=== PATIENT | male | born 1950 | race Two or more races ===

== ENCOUNTER 2020-09-16 13:06 | Inpatient (IN) | payer MEDICAID ==
[2020-09-16] VITALS (13 sets, daily range): BP systolic 116–133; BP diastolic 62–80
[~2020-09-16] VITALS: Ht 167.6 cm; Wt 67.9 kg
[2020-09-16] MEDS ORDERED: SODIUM CHLORIDE 0.9% 1,000 ML IV ONE (13:45)
[2020-09-16] MEDS ORDERED: SODIUM CHLORIDE 0.9% 100 ML ONE (14:09)
[2020-09-16] MEDS ORDERED: IOVERSOL 350 MG/ML 100 ML VIAL ONE (14:09)
[2020-09-16 14:13] LABS: BASOPHILS % (AUTO) 0.4 % (0.0-2.0); MEAN CORPUSCULAR VOLUME 95 fL (80-100); NEUTROPHILS % (AUTO) 60.4 % (40.0-70.0); RED BLOOD CELL COUNT(AUTO) 1.58 MIL/uL (4.50-5.90)
[2020-09-16 14:28] LABS: CREATININE 1.37 mg/dL (0.60-1.30); POTASSIUM 4.1 mmol/L (3.5-5.1)
[2020-09-16 14:30] LABS: EOSINOPHILS % (AUTO) 0.1 % (1.0-6.0); LYMPHOCYTES # (AUTO) 3.8 K/uL (1.0-4.8); LYMPHOCYTES % (AUTO) 30.7 % (22.0-44.0); MEAN CORPUSCULAR HEMOGLOBIN 31.8 pg (26.0-34.0); MEAN CORPUSCULAR HGB CONC 33.4 G/dL (31.0-37.0); MONOCYTES % (AUTO) 8.4 % (2.0-9.0); NEUTROPHILS # (AUTO) 7.5 K/uL (1.8-7.7); PLATELET COUNT (AUTO) 390 K/uL (150-450); RED CELL DISTRIBUTION WIDTH 12.6 % (11.5-14.5)
[2020-09-16 14:34] LABS: ALBUMIN 2.6 g/dL (3.4-5.0); BILIRUBIN,TOTAL 0.4 mg/dL (0.1-1.0); TOTAL PROTEIN, SERUM 6.5 g/dL (6.4-8.2)
[2020-09-16 14:41] LABS: CALCIUM, TOTAL 9.6 mg/dL (8.8-10.5); HEMATOCRIT 15.1 % (41-53)
[2020-09-16] MEDS ORDERED: PANTOPRAZOLE SODIUM 80 MG in SODIUM CHLORIDE 0.9% 100 ML IV SCH (18:00)
[2020-09-16] MEDS ORDERED: PANTOPRAZOLE SODIUM 40 MG/VIAL IVP ONE (18:00)
[2020-09-16] MEDS ORDERED: ONDANSETRON HCL 4 MG/2 ML VIAL IVP PRN (18:15)
[2020-09-16 18:19] LABS: COVID AG,FIA SOURCE NASAL SWAB
[2020-09-16] MEDS: SODIUM CHLORIDE 0.45% 1,000 ML IV SCH ×2 (18:49→23:59)
[2020-09-16] MEDS: PANTOPRAZOLE SODIUM 40 MG/VIAL IVP SCH (20:33)
[2020-09-16] MEDS ORDERED: NAPR220C62 PO (22:47)
[2020-09-17 00:03] VITALS: BP 143/77
[2020-09-17] MEDS ORDERED: PNEUMOCOCCAL VACCINE POLYVALENT 0.5 ML VIAL [PPSV23] IM ONE (03:45)
[2020-09-17] MEDS ORDERED: INFLUENZA VIRUS VACCINE QVS 2020-21 (6MO+)/PF 60 MCG/0.5 ML SYRINGE IM ONE (03:45)
[2020-09-17 04:20] VITALS: BP 131/78
[2020-09-17 07:11] LABS: BASOPHILS % (AUTO) 0.5 % (0.0-2.0); EOSINOPHILS % (AUTO) 0.7 % (1.0-6.0); HEMATOCRIT 23.6 % (41-53); LYMPHOCYTES # (AUTO) 3.2 K/uL (1.0-4.8); LYMPHOCYTES % (AUTO) 25.9 % (22.0-44.0); MEAN CORPUSCULAR HEMOGLOBIN 30.9 pg (26.0-34.0); MEAN CORPUSCULAR HGB CONC 33.7 G/dL (31.0-37.0); MEAN CORPUSCULAR VOLUME 92 fL (80-100); MONOCYTES # (AUTO) 1.3 K/uL (0.1-1.0); MONOCYTES % (AUTO) 10.4 % (2.0-9.0); NEUTROPHILS # (AUTO) 7.6 K/uL (1.8-7.7); NEUTROPHILS % (AUTO) 62.5 % (40.0-70.0); PLATELET COUNT (AUTO) 333 K/uL (150-450); RED BLOOD CELL COUNT(AUTO) 2.57 MIL/uL (4.50-5.90); RED CELL DISTRIBUTION WIDTH 13.7 % (11.5-14.5)
[2020-09-17 07:43] LABS: ALANINE AMINOTRANSFERASE 14 U/L (12-78); ALBUMIN 2.3 g/dL (3.4-5.0); ALKALINE PHOSPHATASE 56 U/L (46-116); ANION GAP 14 mmol/L (8-16); ASPARTATE AMINOTRANSFERASE 16 U/L (15-37); BILIRUBIN,TOTAL 0.3 mg/dL (0.1-1.0); CALCIUM, TOTAL 8.2 mg/dL (8.8-10.5); CARBON DIOXIDE 21 mmol/L (22-29); CHLORIDE 109 mmol/L (98-107); CREATININE 1.14 mg/dL (0.60-1.30); GLUCOSE,RANDOM 115 mg/dL (70-110); POTASSIUM 3.4 mmol/L (3.5-5.1); SODIUM SERUM 144 mmol/L (136-145); TOTAL PROTEIN, SERUM 5.7 g/dL (6.4-8.2); UREA NITROGEN, BLOOD 32 mg/dL (7-18)
[2020-09-17 07:44] LABS: GLOMERULAR FILTR. RATE CALC > 60 mL/min (>60)
[2020-09-17 08:00] VITALS: BP 128/74
[2020-09-17] MEDS: PANTOPRAZOLE SODIUM 40 MG/VIAL IVP SCH ×2 (08:22→20:53)
[2020-09-17] MEDS: SODIUM CHLORIDE 0.45% 1,000 ML IV SCH (11:42)
[2020-09-17 12:00] VITALS: BP 127/69
[2020-09-17] MEDS: SODIUM CHLORIDE 0.9% 1,000 ML IV SCH (12:20)
[2020-09-17] MEDS ORDERED: SODIUM CHLORIDE 0.9% 1,000 ML IV ONE (13:00)
[2020-09-17] MEDS ORDERED: SODIUM CHLORIDE 0.9% 1,000 ML ONE (13:20)
[2020-09-17 14:16] LABS: HEMATOCRIT 23.7 % (41-53)
[2020-09-17 16:00] VITALS: BP 140/70
[2020-09-17 20:11] VITALS: BP 118/64
[2020-09-17 21:10] LABS: HEMOGLOBIN 7.1 g/dL (13.5-17.5)
[2020-09-18 00:12] VITALS: BP 122/66
[2020-09-18] MEDS: SODIUM CHLORIDE 0.9% 1,000 ML IV SCH (02:01)
[2020-09-18 02:06] LABS: HEMATOCRIT 22.3 % (41-53); HEMOGLOBIN 7.5 g/dL (13.5-17.5)
[2020-09-18 04:33] VITALS: BP 122/65
[2020-09-18 07:38] LABS: BASOPHILS % (AUTO) 0.6 % (0.0-2.0); HEMATOCRIT 23.1 % (41-53); HEMOGLOBIN 7.8 g/dL (13.5-17.5); LYMPHOCYTES # (AUTO) 2.6 K/uL (1.0-4.8); LYMPHOCYTES % (AUTO) 24.7 % (22.0-44.0); MEAN CORPUSCULAR HEMOGLOBIN 31.4 pg (26.0-34.0); MEAN CORPUSCULAR VOLUME 93 fL (80-100); MONOCYTES # (AUTO) 1.2 K/uL (0.1-1.0); MONOCYTES % (AUTO) 11.1 % (2.0-9.0); NEUTROPHILS # (AUTO) 6.5 K/uL (1.8-7.7); NEUTROPHILS % (AUTO) 62.6 % (40.0-70.0); PLATELET COUNT (AUTO) 370 K/uL (150-450); RED CELL DISTRIBUTION WIDTH 14.3 % (11.5-14.5)
[2020-09-18 08:05] LABS: ALANINE AMINOTRANSFERASE 14 U/L (12-78); ALBUMIN 2.1 g/dL (3.4-5.0); ALKALINE PHOSPHATASE 62 U/L (46-116); ANION GAP 11 mmol/L (8-16); ASPARTATE AMINOTRANSFERASE 14 U/L (15-37); BILIRUBIN,TOTAL 0.3 mg/dL (0.1-1.0); CALCIUM, TOTAL 8.1 mg/dL (8.8-10.5); CARBON DIOXIDE 22 mmol/L (22-29); CHLORIDE 111 mmol/L (98-107); CREATININE 1.14 mg/dL (0.60-1.30); GLUCOSE,RANDOM 97 mg/dL (70-110); POTASSIUM 3.8 mmol/L (3.5-5.1); SODIUM SERUM 144 mmol/L (136-145); TOTAL PROTEIN, SERUM 5.6 g/dL (6.4-8.2); UREA NITROGEN, BLOOD 17 mg/dL (7-18)
[2020-09-18 08:06] LABS: GLOMERULAR FILTR. RATE CALC > 60 mL/min (>60)
[2020-09-18] MEDS: PANTOPRAZOLE SODIUM 40 MG/VIAL IVP SCH (08:38)
[2020-09-18 11:08] VITALS: BP 138/68
[2020-09-18] MEDS ORDERED: PANT-31 PO (12:54)
[2020-09-18 14:07] VITALS: BP 130/65
[2021-04-30] MEDS ORDERED: GABA-1181 PO (07:30)
[2021-04-30] MEDS ORDERED: DOCU-270 PO (07:30)
[2021-04-30] MEDS ORDERED: AMLO-257 PO (07:30)
[2021-04-30] MEDS ORDERED: NYST100033 PO (07:30)
[2021-04-30] MEDS ORDERED: FERR325T23 PO (07:30)
[2021-04-30] MEDS ORDERED: LISI-894 PO (07:30)
[2021-07-16] MEDS ORDERED: THIA100T80 PO (14:20)
[2021-07-16] MEDS ORDERED: NAPH1PAC2 PO (14:20)
== END 2020-09-18 14:50 | disposition home or self-care (01) | DRG 241 ==
LOC: EMS 13:06 → 5N 21:27
PROVIDERS: ADMIT Internal Medicine; ATTEND Internal Medicine
PROC: 30233N1 Transfusion of Nonautologous Red Blood Cells into Peripheral Vein, Percutaneous Approach (ICD-10-PCS; principal; 2020-09-16)
PROC: 0DB68ZX Excision of Stomach, Via Natural or Artificial Opening Endoscopic, Diagnostic (ICD-10-PCS; 2020-09-17)
PROC: 0DB98ZX Excision of Duodenum, Via Natural or Artificial Opening Endoscopic, Diagnostic (ICD-10-PCS; 2020-09-17)
DX: K25.4 Chronic or unspecified gastric ulcer with hemorrhage (principal); N17.9 Acute kidney failure, unspecified; D62 Acute posthemorrhagic anemia; K29.01 Acute gastritis with bleeding; Z20.822 Contact with and (suspected) exposure to COVID-19; K26.9 Duodenal ulcer, unspecified as acute or chronic, without hemorrhage or perforation; R59.1 Generalized enlarged lymph nodes; K44.9 Diaphragmatic hernia without obstruction or gangrene; M19.90 Unspecified osteoarthritis, unspecified site; K63.5 Polyp of colon; B02.9 Zoster without complications; R13.10 Dysphagia, unspecified; Z79.1 Long term (current) use of non-steroidal anti-inflammatories (NSAID); Z79.899 Other long term (current) drug therapy
CPT/HCPCS: 70450; 70491; 71045; 80053; 82270; 82271; 83690; 84145; 84484; 85014; 85018; 85025; 86850; 86900; 86901; 86923; 88305; 88312; 88313; 93005; 99285; C9113; J2405; J7030; J7050; P9016; 36415-L1; 36415-TC; U0003

== ENCOUNTER 2021-08-17 14:23 | Emergency (ER) | payer MEDICAID ==
[~2021-08-17] VITALS: Ht 165.1 cm; Wt 76.4 kg
[~2021-08-17 14:23] MED LIST: AMLO-257 PO; DOCU-270 PO; GABA-1181 PO; NAPH1PAC2 PO; THIA100T80 PO
[2021-08-17 14:38] VITALS: BP 127/73
[2021-08-17 20:17] LABS: BASOPHILS % (AUTO) 0.5 % (0.0-2.0); EOSINOPHILS % (AUTO) 0.5 % (1.0-6.0); HEMATOCRIT 36.3 % (41-53); HEMOGLOBIN 12.4 g/dL (13.5-17.5); LYMPHOCYTES # (AUTO) 0.7 K/uL (1.0-4.8); LYMPHOCYTES % (AUTO) 22.4 % (22.0-44.0); MEAN CORPUSCULAR HEMOGLOBIN 29.5 pg (26.0-34.0); MEAN CORPUSCULAR HGB CONC 34.3 G/dL (31.0-37.0); MEAN CORPUSCULAR VOLUME 86 fL (80-100); MONOCYTES # (AUTO) 0.3 K/uL (0.1-1.0); MONOCYTES % (AUTO) 9.8 % (2.0-9.0); NEUTROPHILS # (AUTO) 2.2 K/uL (1.8-7.7); NEUTROPHILS % (AUTO) 66.8 % (40.0-70.0); PLATELET COUNT (AUTO) 216 K/uL (150-450); RED BLOOD CELL COUNT(AUTO) 4.21 MIL/uL (4.50-5.90); RED CELL DISTRIBUTION WIDTH 17.6 % (11.5-14.5)
[2021-08-17 20:20] LABS: CALCIUM, TOTAL 9.8 mg/dL (8.8-10.5); CREATININE 1.24 mg/dL (0.60-1.30); POTASSIUM 4.7 mmol/L (3.5-5.1)
[2021-08-17 20:26] LABS: ALBUMIN 3.2 g/dL (3.4-5.0); BILIRUBIN,TOTAL 0.4 mg/dL (0.1-1.0); TOTAL PROTEIN, SERUM 7.7 g/dL (6.4-8.2)
[2021-08-17 20:27] LABS: INR 1.1 (0.9-1.1); PROTHROMBIN TIME 11.3 SEC (9.4-11.6)
== END 2021-08-18 02:01 | disposition home or self-care (01) ==
LOC: MERGE 14:28 → EMS 14:28
DX: R64 Cachexia (principal); D00.08 Carcinoma in situ of pharynx; E44.0 Moderate protein-calorie malnutrition; Z68.28 Body mass index [BMI] 28.0-28.9, adult
CPT/HCPCS: 36245; 36569; 76937; 80053; 85025; 85610; 85730; 99285

== ENCOUNTER 2021-08-25 14:08 | Emergency (ER) | payer MEDICAID ==
[~2021-08-25] VITALS: Ht 175.3 cm; Wt 43.2 kg
[2021-08-25 16:14] VITALS: BP 99/79
== END 2021-08-25 21:34 | disposition home or self-care (01) ==
LOC: EMS 14:34
DX: T82.868A Thrombosis due to vascular prosthetic devices, implants and grafts, initial encounter (principal); I10 Essential (primary) hypertension; Y92.89 Other specified places as the place of occurrence of the external cause
CPT/HCPCS: 99281; Z7502

== ENCOUNTER 2021-10-24 16:14 | Emergency (ER) | payer MEDICAID ==
[~2021-10-24] VITALS: Ht 167.6 cm; Wt 54.5 kg
[2021-10-24 17:01] VITALS: BP 118/70
== END 2021-10-24 17:05 | disposition home or self-care (01) ==
LOC: EMS 16:14
DX: K94.23 Gastrostomy malfunction (principal); I10 Essential (primary) hypertension
CPT/HCPCS: 99281; Z7502

== ENCOUNTER 2022-09-11 07:11 | Day surgery (SDC) | payer OTHER ==
[~2022-09-11] VITALS: Ht 170.2 cm; Wt 55.8 kg
[~2022-09-11 07:11] MED LIST changes: -AMLO-257 PO; -DOCU-270 PO; -GABA-1181 PO; -NAPH1PAC2 PO; +SODIUM CHLORIDE 0.9% 1,000 ML IV ONE; -THIA100T80 PO
[2022-09-11] MEDS ORDERED: LIDOCAINE/PF 2% 5 ML VIAL IM ONE (07:12)
[2022-09-11] MEDS ORDERED: PROPOFOL 1% 20 ML VIAL IVP ONE (07:12)
== END 2022-09-11 16:00 | disposition home or self-care (01) ==
LOC: SURGERY 07:11
PROVIDERS: ATTEND Student in an Organized Health Care Education/Training Program
DX: K94.23 Gastrostomy malfunction (principal); K31.9 Disease of stomach and duodenum, unspecified; Z82.49 Family history of ischemic heart disease and other diseases of the circulatory system; I10 Essential (primary) hypertension; Z80.8 Family history of malignant neoplasm of other organs or systems; Z98.890 Other specified postprocedural states; Z79.899 Other long term (current) drug therapy
CPT/HCPCS: 43246; J2704; J3490

== ENCOUNTER 2023-01-11 17:50 | Emergency (ER) | payer OTHER ==
[~2023-01-11] VITALS: Ht 162.6 cm; Wt 54.5 kg
[2023-01-11] MEDS ORDERED: [UNRECOGNIZED DRUG - REMARK] SQ (17:52)
[2023-01-11 20:08] VITALS: BP 135/75
== END 2023-01-11 20:10 | disposition home or self-care (01) ==
LOC: EMS 17:50
DX: K94.23 Gastrostomy malfunction (principal); I10 Essential (primary) hypertension; Z90.49 Acquired absence of other specified parts of digestive tract; Z98.890 Other specified postprocedural states
CPT/HCPCS: 74022; 99283

== ENCOUNTER 2023-01-15 09:05 | Emergency (ER) | payer OTHER ==
[~2023-01-15] VITALS: Ht 165.1 cm; Wt 56.9 kg
[~2023-01-15 09:05] MED LIST changes: -SODIUM CHLORIDE 0.9% 1,000 ML IV ONE; +[UNRECOGNIZED DRUG - REMARK] SQ
[2023-01-15 09:09] VITALS: BP 115/70
== END 2023-01-15 09:26 | disposition home or self-care (01) ==
LOC: EMS 09:08
DX: K94.23 Gastrostomy malfunction (principal); I10 Essential (primary) hypertension; Z90.49 Acquired absence of other specified parts of digestive tract; Z98.890 Other specified postprocedural states
CPT/HCPCS: 99281; Z7502

== ENCOUNTER 2023-01-27 10:39 | Emergency (ER) | payer OTHER ==
[~2023-01-27] VITALS: Ht 165.1 cm; Wt 51.4 kg
[2023-01-27 11:05] VITALS: TEMP 100
[2023-01-27 11:20] LABS: GLUCOMETER DEV NAME(LOC) ER.6; GLUCOSE,POINT OF CARE 193 MG/DL (70-110)
[2023-01-27] MEDS ORDERED: ACETAMINOPHEN 1000 MG/ISO-OSM 100 ML IV ONE (12:15)
[2023-01-27] MEDS ORDERED: SODIUM CHLORIDE 0.9% 1,000 ML IV ONE (12:15)
[2023-01-27 12:35] LABS: BASOPHILS % (AUTO) 0.3 % (0.0-2.0); EOSINOPHILS % (AUTO) 0.2 % (1.0-6.0); HEMATOCRIT 41.9 % (41-53); HEMOGLOBIN 14.3 g/dL (13.5-17.5); LYMPHOCYTES # (AUTO) 1.1 K/uL (1.0-4.8); LYMPHOCYTES % (AUTO) 17.1 % (22.0-44.0); MEAN CORPUSCULAR HEMOGLOBIN 30.9 pg (26.0-34.0); MEAN CORPUSCULAR VOLUME 91 fL (80-100); MONOCYTES # (AUTO) 1.2 K/uL (0.1-1.0); MONOCYTES % (AUTO) 17.8 % (2.0-9.0); NEUTROPHILS # (AUTO) 4.2 K/uL (1.8-7.7); NEUTROPHILS % (AUTO) 64.6 % (40.0-70.0); PLATELET COUNT (AUTO) 199 K/uL (150-450); RED BLOOD CELL COUNT(AUTO) 4.62 MIL/uL (4.50-5.90); RED CELL DISTRIBUTION WIDTH 14.6 % (11.5-14.5)
[2023-01-27 12:43] LABS: INR 1.1 (0.9-1.1); PROTHROMBIN TIME 11.2 SEC (9.4-11.6)
[2023-01-27 12:47] LABS: ALANINE AMINOTRANSFERASE 33 U/L (12-78); ALBUMIN 3.3 g/dL (3.4-5.0); ALKALINE PHOSPHATASE 77 U/L (46-116); ANION GAP 8 mmol/L (8-16); ASPARTATE AMINOTRANSFERASE 21 U/L (15-37); BILIRUBIN,TOTAL 0.5 mg/dL (0.1-1.0); CALCIUM, TOTAL 9.8 mg/dL (8.8-10.5); CARBON DIOXIDE 33 mmol/L (22-29); CHLORIDE 102 mmol/L (98-107); CREATININE 0.93 mg/dL (0.60-1.30); GLOMERULAR FILTR. RATE CALC > 60 mL/min (>60); GLUCOSE,RANDOM 175 mg/dL (70-110); POTASSIUM 3.8 mmol/L (3.5-5.1); SODIUM SERUM 143 mmol/L (136-145); TOTAL PROTEIN, SERUM 8.3 g/dL (6.4-8.2)
[2023-01-27] MEDS ORDERED: IOHEXOL 350 MG/ML 100 ML VIAL ONE (13:02)
[2023-01-27] MEDS ORDERED: SODIUM CHLORIDE 0.9% 100 ML ONE (13:03)
[2023-01-27 13:37] VITALS: BP 136/75; PULSE 85; RESP 18
== END 2023-01-27 14:55 | disposition short-term general hospital (02) ==
LOC: EMS 10:39
DX: R04.1 Hemorrhage from throat (principal); C10.9 Malignant neoplasm of oropharynx, unspecified; E11.9 Type 2 diabetes mellitus without complications; I10 Essential (primary) hypertension; Z85.9 Personal history of malignant neoplasm, unspecified; Z90.49 Acquired absence of other specified parts of digestive tract
CPT/HCPCS: 99285; 96365; 71045; 80053; 82962; 85025; 85610; 36415; Q9967; J7050; J0131